=== PATIENT | female | born 1940 | race Caucasian/White ===

== ENCOUNTER 2020-01-05 17:28 | Inpatient (IN) | payer OTHER ==
[2020-01-05] MEDS ORDERED: ACETYLCYSTEIN 20 % 6,000 MG/30 ML VIAL ONE (17:30)
[2020-01-05] MEDS ORDERED: IPRATROPIUM/ALBUTEROL 3 ML VIAL NEB ONE ×3 (17:30→22:30)
[2020-01-05] MEDS ORDERED: ACETYLCYSTEIN 20 % 6,000 MG/30 ML VIAL NEB ONE (17:37)
--- NOTE | 2020-01-05 19:05 | RAD ---
EXAM DESCRIPTION: Chest,2 Views CLINICAL HISTORY: 79 years Female sob, hypoxia COMPARISON: None. FINDINGS: Cardiac size is within normal limits. Pulmonary hyperinflation with flattening of hemidiaphragms. Patchy areas of atelectasis or infiltrate in the lung bases particularly in the region of the right middle lobe concerning for pneumonia. Blunting the posterior sulci and costophrenic angles may reflect scarring versus effusions. IMPRESSION: Patchy areas of density in the lung bases particularly in the right middle lobe concerning for pneumonia Question scarring versus effusions Electronically signed by: Nicole Villarreal MD 01/05/2020 7:03 PM [facility]
[2020-01-05] MEDS ORDERED: cefTRIAXone SODIUM 1 GM in SODIUM CHL 0.9% 50ML MIN-BAG+ 50 ML IVPB ONE (19:25)
[2020-01-05] MEDS ORDERED: KETOROLAC TROMETHAMINE INJ 30 MG/ML VIAL IV ONE (19:25)
[2020-01-05] MEDS ORDERED: AZITHROMYCIN IV 500 MG in SODIUM CHLORIDE 0.9% 250ML 250 ML IVPB ONE (19:25)
[2020-01-05] MEDS ORDERED: MORPHINE SULFATE INJ 10 MG/ML VIAL IV ONE (19:25)
[2020-01-05] MEDS ORDERED: POTASSIUM CHLORIDE ELIXIR 20 MEQ/15 ML UD PO ONE (19:32)
[2020-01-05] MEDS ORDERED: cefTRIAXone SODIUM 1 GM VIAL ONE (19:51)
[2020-01-05] MEDS ORDERED: SODIUM CHL 0.9% 50ML MIN-BAG+ 50 ML IVPB ONE (19:51)
--- NOTE | 2020-01-05 19:58 | ED.PDOC ---
History of Present Illness - General Chief Complaint: Respiratory Problem Stated Complaint: SOB Time Seen by Provider: 01/05/20 17:36 Source: patient, family Exam Limitations: no limitations - History of Present Illness Initial Comments: The patient is a 79-year-old female presented to the emergency room secondary to progressive shortness of breath. The patient apparently fell about 4 days ago and sustained injury to her anterior lower rib cage. Due to that she has not been taking deep breaths. EMS was called out for shortness of breath and was getting oxygen saturations down in the mid to low 80 percentiles. The patient denies any fever. She has not been coughing intentionally. No history of significant lung disease according to her. No syncope. She did get a little bit dizzy earlier today. Chest pain is worse to the left lower anterior rib cage than the right but there is some bilaterally. She does have rales at bilateral bases. She also does have some mild rales in the right midlung field. She denies pain elsewhere. Timing/Duration: 24 hours Severity: moderate Improving Factors: nothing Worsening Factors: movement Associated Symptoms: chest pain, cough, shortness of breath Allergies/Adverse Reactions: Allergies NO KNOWN ALLERGY Allergy (Verified 01/05/20 17:52) Review of Systems - Review of Systems Constitutional: States: malaise EENTM: States: no symptoms reported Respiratory: States: cough, short of breath Cardiology: States: chest pain Gastrointestinal/Abdominal: States: no symptoms reported Genitourinary: States: no symptoms reported Musculoskeletal: States: see HPI Skin: States: no symptoms reported Neurological: States: anxiety Endocrine: States: no symptoms reported All other Systems: No Change from Baseline Past Medical History (General) - Patient Medical History Hx Dementia: No Hx of COPD: No Hx Cardiac Disorders: No Hx Congestive Heart Failure: No Hx Pacemaker: No Hx Hypertension: No Hx Diabetes: No Surgical History: Hysterectomy - Vaccination History Hx Tetanus, Diphtheria Vaccination: Yes Hx Influenza Vaccination: Yes Hx Pneumococcal Vaccination: Yes Immunizations Up to Date: Yes - Social History Hx Tobacco Use: No Hx Alcohol Use: Yes - SOCIAL Hx Substance Use: No Hx Substance Use Treatment: No Hx Depression: Yes Family Medical History - Family History Mother Family History: Unknown Living Status: Physical Exam - Physical Exam General Appearance: Alert, Anxious Eye Exam: bilateral normal Ears, Nose, Throat: hearing grossly normal, normal pharynx Neck: full range of motion, supple Respiratory: no respiratory distress, no accessory muscle use, rales, rhonchi, other - See history of present illness for chest wall tenderness. Cardiovascular/Chest: normal peripheral pulses, no edema, other - Regular rate. 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 She requires 3 and half liters to maintain oxygen saturations greater than 90%. Progress - Progress Progress: 01/05/20 20:03 The patient is a 79-year-old female presents emergency room secondary to hypoxia related to both atelectasis and likely a developing pneumonia in the right middle lobe. This is due primarily to the patient not taking deep breaths secondary to pain from a fall injury from several days ago. According to patient and her family x-rays there at an outpatient facility showed no evidence of any rib fractures and I see no evidence of any rib fractures here. The patient received a breathing treatment and is on supplemental oxygen. Currently requiring about 2.5 L of oxygen to maintain oxygen saturations of 90% or greater. The patient has been started on Rocephin and azithromycin. Blood and sputum cultures are being done. She has also received a small dose of pain medications. She also has mild hypokalemia and received a dose of oral potassium. Admit for continued care. She will require significant pulmonary therapy in the form of CPT and incentive spirometry. mihaela zheng [id number] - Results/Orders Results/Orders: Laboratory Tests 01/05/20 01/05/20 17:55 17:55 WBC 6.9 RBC 3.99 L Hgb 12.7 Hct 37.3 MCV 93.6 MCH 31.8 H MCHC 33.9 RDW 13.9 Plt Count 312 MPV 7.0 L Absolute Neuts (auto) 4.70 Absolute Lymphs (auto) 1.50 Absolute Monos (auto) 0.50 Absolute Eos (auto) 0.10 Absolute Basos (auto) 0.00 Neutrophils % 68.9 Lymphocytes % 21.4 Monocytes % 7.7 Eosinophils % 1.3 Basophils % 0.7 Sodium 136 Potassium 3.3 L Chloride 98 L Carbon Dioxide 27 Anion Gap 14.3 BUN 13 Creatinine 0.72 BUN/Creatinine Ratio 18.1 Random Glucose 111 H Serum Osmolality 272.8 L Calcium 9.8 Total Bilirubin 0.8 AST 34 ALT 27 Alkaline Phosphatase 49 Creatine Kinase 166 H CK-MB (CK-2) 3.5 CK-MB (CK-2) % Not Reportable Troponin I < 0.02 B-Natriuretic Peptide 58.6 Serum Total Protein 8.2 Albumin 4.6 Globulin 3.6 H Albumin/Globulin Ratio 1.3 Chest x-ray shows bilateral lower lobe base of the lung infiltrate versus atel ectasis with small effusions. There is also a very small right midlung infiltrate. EKG shows normal sinus rhythm 85 bpm with PACs. There is left axis deviation and poor R wave progression consistent with a left anterior fascicular block. There is possibly a mild early right bundle branch block. No ST segment or T wave changes indicative of acute ischemia. Prolonged QT interval. - EKG/XRAY/CT CT Ordered: No Departure - Departure Clinical Impression: Atelectasis of both lungs, Hypokalemia Right middle lobe pneumonia Qualifiers: Pneumonia type: due to unspecified organism Qualified Code(s): J18.9 - Pneumon ia, unspecified organism Disposition: Admit Patient Condition: Fair Departure Forms: ED Discharge - Pt. Copy, Patient Portal Self Enrollment Decision To Admit - Decistion To Admit Decision to Admit Reason: Medical Nature Decision to Admit Date: 01/05/20 Decision to Admit Time: 20:05
[2020-01-05] MEDS ORDERED: SODIUM CHLORIDE 0.9% 250ML 250 ML ONE (20:26)
[2020-01-05] MEDS ORDERED: AZITHROMYCIN IV 500 MG VIAL IVPB ONE (20:26)
--- NOTE | 2020-01-05 20:38 | HP ---
SUPERVISING PHYSICIAN: Viviana Ward MD CHIEF COMPLAINT: Shortness of breath. HISTORY OF PRESENT ILLNESS: This is a 79-year-old female with no significant past medical history who states that about a week ago, she did not feel well. She went to her primary care physician's office and had complaint of sore throat. They did a throat swab that was negative. She was sent home, however, on Sunday, she had a fall. She was going to the [facility] and was walking across the street and fell flat on her front side. She sustained a laceration above her left eyebrow as well as some bruised rubs. There were no broken ribs per the report. The laceration was repaired and she was sent home. She does live in [place], but she went to stay with her daughter at [facility]. However, she had some shortness of breath and therefore called the ambulance and the ambulance brought her here to the Emergency Room. She was noted to have O2 saturations in the low to mid 80s. Once she was placed on O2, that did improve, however, she was noted to have rales on chest auscultation. Chest x-ray was consistent with bibasilar atelectasis and a right middle lobe pneumonia. Although white count was normal, given her hypoxia, she was referred for admission. At time of examination, the patient is alert and oriented, able to converse without any problem. She does complain of some rib pain, but states it is a little bit better than it was after the pain medicine she was given in the Emergency Room. PAST MEDICAL HISTORY: 1. Insomnia. 2. Gastroesophageal reflux disease. PAST SURGICAL HISTORY: 1. Left wrist surgery. MEDICATIONS: 1. Lexapro 20 mg daily. 2. Omeprazole 40 mg daily. 3. Trazodone 100 mg p.o. daily. ALLERGIES: NO KNOWN DRUG ALLERGIES. FAMILY HISTORY: Reviewed and noncontributory to the current issue. SOCIAL HISTORY: Nondrinker, nonsmoker, no illicit drugs. REVIEW OF SYSTEMS: CONSTITUTIONAL: No fever or chills. No recent weight loss or weight gain. HEENT: No headaches, vision changes, ear pain, nasal congestion or throat pain currently. As stated above, she did have some throat last Sunday. RESPIRATORY: No cough, but she has made herself not cough due to the rib pain. She has had some shortness of breath. CARDIOVASCULAR: No chest pain, palpitations or peripheral edema. GASTROINTESTINAL: No nausea, vomiting, diarrhea, constipation or abdominal pain. GENITOURINARY: No dysuria, frequency or flank pain. MUSCULOSKELETAL: She does have some bruising around the right inner ankle. No other joint pain or joint swelling. She has some musculoskeletal pain to the ribs. ENDOCRINE: No polydipsia, polyuria or polyphagia. No heat or cold intolerance. SKIN: She does have a laceration above her left eyebrow, which is well approximated. There is no sign of infection. No other rashes, lesions or wounds. NEUROLOGIC: No syncope, paresthesias or seizures. PHYSICAL EXAMINATION: VITAL SIGNS: Blood pressure 146/83. Heart rate 86. Respiratory rate 18. Temperature 97.7. Oxygen saturation 94%. GENERAL: Ms. Hanson is a 79-year-old female who is in no active distress currently. NEUROLOGIC: The patient is alert and oriented. LUNGS: Clear to upper lung hartmann, however, in the lower lung hartmann, she does have a little bit of rhonchi bilaterally. CARDIOVASCULAR: Regular rate and rhythm. Normal S1, S2. ABDOMEN: Soft. Positive bowel sounds. GENITOURINARY: Deferred. EXTREMITIES: Lower extremities with no edema. The right inner ankle near the heel does have some ecchymosis. No significant tenderness to palpation or edema. Above the left eyebrow, she does have about a 3 cm laceration which is well approximated with sutures with no sign of infection at this time. LABORATORY: Labs and films have been reviewed in the EMR. ASSESSMENT: 1. Hypoxia secondary to atelectasis and right middle lobe pneumonia. 2. Bilateral rib contusions secondary to a fall with no broken ribs. 3. Hypokalemia which has been replaced in the Emergency Room. 4. Gastroesophageal reflux disease. 5. Insomnia. PLAN: At this point, the patient will be admitted for treatment for pneumonia and hypoxia related to this. We will keep her on oxygen and start her on EzPAP breathing treatments as well as incentive spirometry. Additionally, I have given her scheduled Toradol for the next 24 hours and transition to p.o. medications and utilize morphine for breakthrough pain. She needs to cough and deep breathe to resolve this issue. I will also check a urinalysis to make sure she does not have a urinary tract infection. Moraimax has been utilized for DVT prophylaxis and Protonix for GI ulcer prophylaxis. #[id number] [facility]
[2020-01-05] MEDS ORDERED: MORPHINE SULFATE INJ 10 MG/ML VIAL IV PRN (21:39)
[2020-01-05] MEDS ORDERED: IV SET AND CAP CHANGE INJ INJ SCH (22:00)
[2020-01-05] MEDS: PANTOPRAZOLE SODIUM IV 40 MG VIAL IV SCH (23:05)
[2020-01-05] MEDS: ENOXAPARIN SODIUM 40 MG/0.4 ML SYG SUBCU SCH (23:05)
[2020-01-05] MEDS: KETOROLAC TROMETHAMINE INJ 30 MG/ML VIAL IV SCH (23:43)
[2020-01-06] MEDS ORDERED: IPRATROPIUM/ALBUTEROL 3 ML VIAL INH SCH
[2020-01-06] MEDS ORDERED: traZODone HCL 100 MG TAB PO ONE (00:49)
[2020-01-06] MEDS: SODIUM CHLORIDE 0.9% (FLUSH) 10 ML SYG IV PRN ×2 (05:18→23:53)
[2020-01-06] MEDS: KETOROLAC TROMETHAMINE INJ 30 MG/ML VIAL IV SCH ×4 (05:32→23:53)
[2020-01-06] MEDS ORDERED: IPRATROPIUM/ALBUTEROL 3 ML VIAL NEB ONE (05:44)
[2020-01-06] MEDS: LEVALBUTEROL NEBS 1.25 MG/3 ML VIAL NEB PRN ×3 (05:58→19:02)
[2020-01-06] MEDS ORDERED: POTASSIUM CHLORIDE 20 MEQ TAB PO ONE (07:58)
--- NOTE | 2020-01-06 10:16 | PN ---
SUPERVISING PHYSICIAN: Viviana Ward MD DATE: 01/06/20 SUBJECTIVE: The patient still complains of some shortness of breath requiring oxygen at this time. She also complains of some muscle cramps which she states are chronic and she takes some [id number] medication that is sublingual, but she does not remember the name of it. OBJECTIVE: VITAL SIGNS: Blood pressure 143/85. Heart rate 90. Respiratory rate 20. Temperature 98.6. Oxygen saturation 94% on nasal cannula at 2 liters. GENERAL: Ms. Hanson is a 79-year-old female is in mild respiratory distress. NEUROLOGIC: Alert and oriented. LUNGS: Scattered rhonchi. No active wheezing. Diminished in the bases. CARDIOVASCULAR: Regular rate and rhythm. Normal S1, S2. ABDOMEN: Soft. Positive bowel sounds. GENITOURINARY: Deferred. EXTREMITIES: Lower extremities with no edema. ASSESSMENT: 1. Hypoxia secondary to atelectasis and right middle lobe pneumonia. 2. Bilateral rib contusions secondary to a fall with no broken ribs. 3. Hypokalemia. 4. Gastroesophageal reflux disease. 5. Insomnia. 6. Leg cramps. PLAN: The patient some jitteriness after the breathing treatments last night, so this is changed to Xopenex. Additionally, this morning she had some leg cramps. I will recheck her electrolytes including magnesium. Continue EzPAP. Continue incentive spirometry. We will continue Lovenox for DVT prophylaxis and Protonix for GI ulcer prophylaxis as well. #[id number] [facility]
[2020-01-06] MEDS: HYDROcodone 5MG/APAP 325MG 1 EA TAB PO PRN ×2 (10:45→17:36)
[2020-01-06] MEDS: BIFIDOBACTERIUM INFANTIS 4 MG CAP PO SCH (13:50)
[2020-01-06] MEDS ORDERED: AZITHROMYCIN IV 500 MG VIAL IVPB ONE (20:16)
[2020-01-06] MEDS ORDERED: SODIUM CHLORIDE 0.9% 250ML 250 ML ONE (20:16)
[2020-01-06] MEDS: AZITHROMYCIN IV 500 MG in SODIUM CHLORIDE 0.9% 250ML 250 ML IVPB SCH (20:19)
[2020-01-06] MEDS ORDERED: SODIUM CHL 0.9% 50ML MIN-BAG+ 50 ML IVPB ONE (20:40)
[2020-01-06] MEDS ORDERED: cefTRIAXone SODIUM 1 GM VIAL ONE (20:40)
[2020-01-06] MEDS: traZODone HCL 100 MG TAB PO SCH (20:56)
[2020-01-06] MEDS: SODIUM CHLORIDE 0.9% (FLUSH) 10 ML SYG IV SCH (20:56)
[2020-01-06] MEDS ORDERED: traZODone HCL 100 MG TAB PO SCH (21:00)
[2020-01-06] MEDS: cefTRIAXone SODIUM 1 GM in SODIUM CHL 0.9% 50ML MIN-BAG+ 50 ML IVPB SCH (21:55)
[2020-01-06] MEDS: PANTOPRAZOLE SODIUM IV 40 MG VIAL IV SCH (21:56)
[2020-01-06] MEDS: ENOXAPARIN SODIUM 40 MG/0.4 ML SYG SUBCU SCH (21:56)
[2020-01-07] MEDS: LEVALBUTEROL NEBS 1.25 MG/3 ML VIAL NEB PRN ×2 (03:05→18:00)
[2020-01-07] MEDS: HYDROcodone 5MG/APAP 325MG 1 EA TAB PO PRN ×2 (03:30→11:09)
--- NOTE | 2020-01-07 05:38 | RAD ---
CHEST, ONE VIEW XR CLINICAL HISTORY: Pneumonia. COMPARISON: Chest 01/05/2020 TECHNIQUE: AP Chest. FINDINGS: Heart is normal in size. Normal cardiomediastinal contours. Bibasilar atelectasis. Possible small focus of right lower lobe infiltrate. There is no edema or pneumothorax. Intact bones. Unremarkable soft tissues. IMPRESSION: 1. [] Electronically signed by: Yeny Tee DO 01/07/2020 5:37 AM [facility]
[2020-01-07] MEDS: KETOROLAC TROMETHAMINE INJ 30 MG/ML VIAL IV SCH ×3 (05:47→17:51)
[2020-01-07] MEDS ORDERED: ESCITALOPRAM 10 MG TAB ONE (07:39)
[2020-01-07] MEDS: ESCITALOPRAM 10 MG TAB PO SCH (08:33)
[2020-01-07] MEDS: BIFIDOBACTERIUM INFANTIS 4 MG CAP PO SCH (08:33)
[2020-01-07] MEDS: SODIUM CHLORIDE 0.9% (FLUSH) 10 ML SYG IV SCH ×2 (08:42→21:40)
--- NOTE | 2020-01-07 10:43 | PN ---
SUPERVISING PHYSICIAN: Viviana Ward MD DATE: 01/07/20 SUBJECTIVE: The patient states she is feeling a little bit better today and she is able to cough up some sputum. She states she is still having some rib pain, but it is less pronounced. OBJECTIVE: VITAL SIGNS: Blood pressure 123/77. Heart rate 91. Respiratory rate 22. Temperature 97.9. Oxygen saturation 91% on nasal cannula at 2 liters. GENERAL: Ms. Hanson is a 79-year-old female who is in no distress currently. NEUROLOGIC: Alert and oriented. LUNGS: Still some scattered rhonchi, more on the right than the left. CARDIOVASCULAR: Regular rate and rhythm. Normal S1, S2. ABDOMEN: Soft. Positive bowel sounds. GENITOURINARY: Deferred. EXTREMITIES: Lower extremities with no edema. LABORATORY: White count 7.7, hemoglobin 10.4, hematocrit 38.6, platelet count 264. Sodium 136, potassium 3.7, chloride 102, CO2 26, BUN 12, creatinine 0.67. Glucose 123, calcium 9.3. RADIOLOGY: Chest x-ray shows small right lower lobe infiltrate, bibasilar atelectasis. ASSESSMENT: 1. Hypoxia secondary to atelectasis and right middle lobe pneumonia. 2. Bilateral rib contusions secondary to a fall with no broken ribs. 3. Hypokalemia, resolved. 4. Gastroesophageal reflux disease. 5. Insomnia. 6. Leg cramps. PLAN: Leg cramps are improved. Hypokalemia is resolved. She did sleep better after the trazodone last night. She is having more productive sputum. At rest, she is off of oxygen at times and satting in the low 90s. However, on ambulation study this morning, she was satting 85%. Therefore, she is not totally able to be off of oxygen at this point. We will continue the EzPAP and the antibiotics. Potentially, we will may be able to let her go home in the next 24 to 48 hours, but will require home O2 if her ambulation study does not improve. #[id number] [facility]
[2020-01-07] MEDS ORDERED: SODIUM CHLORIDE 0.9% 250ML 250 ML ONE (19:54)
[2020-01-07] MEDS ORDERED: SODIUM CHL 0.9% 50ML MIN-BAG+ 50 ML IVPB ONE (19:55)
[2020-01-07] MEDS ORDERED: cefTRIAXone SODIUM 1 GM VIAL ONE (19:55)
[2020-01-07] MEDS ORDERED: AZITHROMYCIN IV 500 MG VIAL IVPB ONE (19:56)
[2020-01-07] MEDS: AZITHROMYCIN IV 500 MG in SODIUM CHLORIDE 0.9% 250ML 250 ML IVPB SCH (20:08)
[2020-01-07] MEDS: traZODone HCL 100 MG TAB PO SCH (21:40)
[2020-01-07] MEDS: ENOXAPARIN SODIUM 40 MG/0.4 ML SYG SUBCU SCH (21:42)
[2020-01-07] MEDS: PANTOPRAZOLE SODIUM IV 40 MG VIAL IV SCH (22:10)
[2020-01-07] MEDS: cefTRIAXone SODIUM 1 GM in SODIUM CHL 0.9% 50ML MIN-BAG+ 50 ML IVPB SCH (22:15)
[2020-01-08] MEDS: KETOROLAC TROMETHAMINE INJ 30 MG/ML VIAL IV SCH ×2 (00:40→05:55)
[2020-01-08] MEDS: SODIUM CHLORIDE 0.9% (FLUSH) 10 ML SYG IV SCH (08:48)
[2020-01-08] MEDS: ESCITALOPRAM 10 MG TAB PO SCH (08:48)
[2020-01-08] MEDS: BIFIDOBACTERIUM INFANTIS 4 MG CAP PO SCH (08:48)
[2020-01-08] MEDS: LEVALBUTEROL NEBS 1.25 MG/3 ML VIAL NEB PRN (10:05)
[2020-01-08 13:23] VITALS: BP 144/73; TEMP 98.2; O2SAT 95
--- NOTE | 2020-01-08 13:36 | DS ---
SUPERVISING PHYSICIAN: Viviana Ward MD ADMISSION DIAGNOSIS: 1. Hypoxia secondary to atelectasis and right middle lobe pneumonia. 2. Bilateral rib contusion secondary to a fall with no broken ribs. 3. Hypokalemia, replaced in the Emergency Room. 4. Gastroesophageal reflux disease. 5. Insomnia. DISCHARGE DIAGNOSIS: 1. Hypoxia secondary to atelectasis and right middle lobe pneumonia. 2. Bilateral rib contusion secondary to a fall with no broken ribs. 3. Hypokalemia, replaced in the Emergency Room. 4. Gastroesophageal reflux disease. 5. Insomnia. HOSPITAL COURSE: This is a 79-year-old female with no significant past medical history who states that about a week ago, she did not feel well. She went to her primary care physician's office and had complaint of sore throat. They did a throat swab that was negative. She was sent home, however, on Sunday, she had a fall. She was going to the [facility] and was walking across the street and fell flat on her front side. She sustained a laceration above her left eyebrow as well as some bruised rubs. There were no broken ribs per the report. The laceration was repaired and she was sent home. She does live in [place], but she went to stay with her daughter at [facility]. However, she had some shortness of breath and therefore called the ambulance and the ambulance brought her here to the Emergency Room. She was noted to have O2 saturations in the low to mid 80s. Once she was placed on O2, that did improve, however, she was noted to have rales on chest auscultation. Chest x-ray was consistent with bibasilar atelectasis and a right middle lobe pneumonia. Although white count was normal, given her hypoxia, she was referred for admission. At time of examination, the patient is alert and oriented, able to converse without any problem. She does complain of some rib pain, but states it is a little bit better than it was after the pain medicine she was given in the Emergency Room. Throughout the admission, she required less oxygen and was breathing better without any significant shortness of breath. Her rib pain was improved as well. However, on room air on ambulation, saturation was in the mid-80s to 85%. Therefore, with a normal white count and a chest x-ray which had mildly improved, it was decided to discharge her today on p.o. antibiotics as an outpatient. She will go home with incentive spirometry as well as a flutter valve and take p.r.n. nebulizer treatments. I have also ordered home oxygen and she will use that as well. I spoke with her primary care provider, CUATE Encarnacion, in [place]. I updated him on the patient's condition and that she would need to followup with him next week to include removal of the sutures that she had placed above her left eyebrow. She will go home on Ceftin 500 mg p.o. q.12h. for 7 days as well. Diet is as tolerated. Activities as tolerated. I do not recommend her driving at this time. #[id number] [facility]
== END 2020-01-08 12:30 | disposition home or self-care (01) | DRG 194 ==
LOC: ER 17:28 → MS 20:36 → OBSVTOIN 20:36
PROVIDERS: ADMIT Nurse Practitioner; ATTEND Nurse Practitioner
DX: J18.9 Pneumonia, unspecified organism (principal); J98.11 Atelectasis; R09.02 Hypoxemia; E87.6 Hypokalemia; R25.2 Cramp and spasm; K21.9 Gastro-esophageal reflux disease without esophagitis; G47.00 Insomnia, unspecified; S20.212D Contusion of left front wall of thorax, subsequent encounter; S20.211D Contusion of right front wall of thorax, subsequent encounter; W19.XXXD Unspecified fall, subsequent encounter; Z79.899 Other long term (current) drug therapy

== ENCOUNTER → 2020-06-29 | Outpatient (CLI) | payer OTHER | LOC: GMAL 16:40 | PROVIDERS: ATTEND Family Medicine | DX: R39.15 Urgency of urination (principal) ==

== ENCOUNTER → 2020-08-20 | Outpatient (CLI) | payer OTHER | LOC: GMAL 10:32 | PROVIDERS: ATTEND Family Medicine | DX: R30.0 Dysuria (principal) ==

== ENCOUNTER → 2020-10-20 | Outpatient (CLI) | payer MEDICARE | LOC: GMAL 14:12 | PROVIDERS: ATTEND Family Medicine | DX: N30.00 Acute cystitis without hematuria (principal) ==

== ENCOUNTER → 2020-10-28 | Outpatient (CLI) | payer MEDICARE ==
--- NOTE | 2020-10-29 09:43 | CT ---
Study: CT Chest. Indication: infiltrate noted on imaging study- primary Technique: CT imaging of the chest obtained without intravenous administration of contrast. This exam was performed according to our departmental dose-optimization program, which includes automated exposure control, adjustment of the mA and/or kV according to patient size and/or use of iterative reconstruction technique. Comparison: Radiographs January 07, 2020 Findings: Atherosclerosis aorta, great vessels, coronary arteries. Heart size normal. No pathologically enlarged lymphadenopathy. Degenerative changes of the spine noted. Biapical pleural parenchymal scarring. No pleural effusion or pneumothorax. Mild tree-in-bud nodularity in the posterior aspect of the left lower lobe. Scattered areas of additional presumed linear scarring throughout the bilateral lungs. However, at the left upper lobe on image 28 is a 3 cm area of spiculated consolidation as well as mild surrounding groundglass attenuation. Inferior to this on image 53 in the left upper lobe is a 7.5 mm spiculated pulmonary nodule. Compared to the prior radiographs there is improved aeration of the lung bases. Impression: Likely new spiculated area of mixed consolidation in the left upper lobe. Malignancy should be excluded. Pneumonia could give this appearance. At minimum, follow-up CT chest in 3 months recommended. Alternatively, PET/CT or biopsy could be performed. Pulmonology consultation advised. Mild tree-in-bud nodularity posterior aspect of the left lower lobe concerning for atypical pneumonia. Additional findings as above. Electronically signed by: Roscoe Saunders MD 10/29/2020 9:41 AM [employer]
== END ==
LOC: CT 10:02
PROVIDERS: ATTEND Internal Medicine
DX: R91.8 Other nonspecific abnormal finding of lung field (principal)

== ENCOUNTER → 2020-11-26 | Outpatient (CLI) | payer MEDICARE | LOC: GMAL 12:42 | PROVIDERS: ATTEND Family Medicine | DX: D51.8 Other vitamin B12 deficiency anemias (principal); E55.9 Vitamin D deficiency, unspecified; R06.02 Shortness of breath; R53.83 Other fatigue; D50.8 Other iron deficiency anemias ==

== ENCOUNTER → 2020-12-13 | Outpatient (CLI) | payer MEDICARE | LOC: GMAL 17:11 | PROVIDERS: ATTEND Family Medicine | DX: R39.15 Urgency of urination (principal) ==